=== PATIENT | female | born 1980 | race Caucasian/White ===

== ENCOUNTER 2018-04-23 16:41 | Emergency (ER) | payer MEDICARE, OTHER ==
[2018-04-23 17:27] VITALS: BP 159/74; PULSE 88; RESP 20; TEMP 98.7
--- NOTE | 2018-04-23 19:10 | XR ---
PROCEDURE: XR knee complete LT 3V DATE AND TIME: 04/23/2018 6:04 PM CLINICAL INDICATION: [facility] Pain TECHNIQUE: Department protocol. 3V COMPARISON: None FINDINGS: There is no fracture or malalignment. The soft tissues are unremarkable. IMPRESSION: NO ACUTE PROCESS.
[2018-04-23] MEDS ORDERED: HYDROcodone/APAP 5-325MG 1 EACH TAB PO STA (19:26)
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
== END 2018-04-23 19:57 | disposition home or self-care (01) ==
LOC: EC 16:41
DX: M25.562 Pain in left knee (principal); M54.5 Low back pain; R60.0 Localized edema; G89.29 Other chronic pain; F17.200 Nicotine dependence, unspecified, uncomplicated; Z88.6 Allergy status to analgesic agent; Z88.0 Allergy status to penicillin; Z88.1 Allergy status to other antibiotic agents; Z88.2 Allergy status to sulfonamides; Y04.8XXA Assault by other bodily force, initial encounter
CPT/HCPCS: 73562; 99283; L1830